=== PATIENT | female | born 2000 | race African-American/Black ===

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

== ENCOUNTER 2025-02-20 14:13 | Emergency (ER) | payer SELFPAY ==
[~2025-02-20] VITALS: Ht 170.2 cm; Wt 52.0 kg
[2025-02-20 15:32] LABS: Urine Bacteria FEW /hpf (None Seen); Urine Blood 2+ /uL (Negative); Urine Clarity Clear (Clear); Urine Color Yellow (Yellow); Urine Mucus FEW (None Seen); Urine Protein, UAD 1+ (Negative); Urine Specific Gravity 1.031 (1.001-1.035); Urine Squamous Epithelial Cell FEW /hpf (<5); Urine Urobilinogen 3 mg/dL (Negative); Urine WBC 23 /HPF (0-5)
--- NOTE | 2025-02-20 15:43 | ED.PDOC ---
History of Present Illness HPI Comments A 24 YEAR OLD FEMALE PRESENTS TO THE ED WITH COMPLAINT OF BODY ACHES AND RIGHT FLANK PAIN. PATIENT STATES SHE HAS BEEN EXPERIENCING BODY ACHES, FEVER, RIGHT FLANK PAIN, NAUSEA, CHILLS, AND SWEATS FOR THE PAST 1 WEEK. PATIENT REPORTS SHE HAS ALSO BEEN EXPERIENCING CONSTIPATION AND NAUSEA FOR THE PAST 3 DAYS. PATIENT DENIES DYSURIA, HEMATURIA, SHORTNESS OF BREATH, CHEST PAIN, ABDOMINAL PAIN, VOMITING, HEADACHE, OR OTHER COMPLAINTS. NO OTHER SYMPTOMS OR MODIFYING FACTORS AT THIS TIME. PATIENT IS ALERT, ORIENTED X 4, AND HAS STEADY GAIT. Chief Complaint: FLANK PAIN Time Seen by MD: 14:40 Reviewed Notes: Nurses Notes, Medications, Allergies Allergies: Coded Allergies: NO KNOWN ALLERGIES (Unverified , 02/20/25) Home Meds Active Scripts Ciprofloxacin Hcl (Cipro) 500 Mg Tab, 1 TAB PO BID, #20 TAB Prov:BONNIE APARICIO 02/20/25 Information Source: Patient Mode of Arrival: Ambulatory Severity: Moderate Timing: Days Duration: Intermittent, Days Prehospital treatment: None Medication Refill: For: Other (BODY ACHES AND RIGHT FLANK PAIN ) Past Medical History PAST MEDICAL HISTORY: Anemia Surgical History: Denies all surgeries SERVER CASHIER 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: No Pertinent 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 History Family History Family History: Reviewed,noncontributory to illness Social History Smoker: Non-Smoker Alcohol: Denies ETOH Use Drugs: Denies Drug Use Lives In: Home Constitutional: reports: chills, fatigue, fever, sweats; denies: diaphoresis, malaise, weakness, others EENTM: denies: blurred vision, double vision, ear bleeding, ear discharge, ear drainage, ear pain, ear ringing, eye pain, eye redness, hearing loss, mouth pain, mouth swelling, nasal discharge, nose bleeding, nose congestion, nose pain, photophobia, tearing, throat pain, throat swelling, voice changes, others Respiratory: denies: cough, hemoptysis, orthopnea, SOB at rest, shortness of breath, SOB with excertion, stridor, wheezing, others Cardiovascular: denies: chest pain, dizzy spells, diaphoresis, Dyspnea on exertion, edema, irregular heart beat, left arm pain, lightheadedness, palpitations, PND, syncope, others Gastrointestinal: reports: constipated, nausea; denies: abdomen distended, abdominal pain, blood streaked bowels, diarrhea, dysphagia, difficulty swallowing, hematemesis, melena, poor appetite, poor fluid intake, rectal bl eeding, rectal pain, vomiting, others Genitourinary: reports: flank pain; denies: abnormal vagina bleeding, burning, dyspareunia, dysuria, frequency, hematuria, incontinence, pain, , vagina discharge, urgency, others Neurological: denies: dizziness, fainting, headache, left sided numbness, left sided weakness, numbness, paresthesia, pre-existing deficit, right sided numbness, right sided weakness, seizure, speech problems, tingling, tremors, weakness, others Musculoskeletal: reports: muscle pain; denies: back pain, gout, joint pain, joint swelling, muscle stiffness, neck pain, others Integumetry: denies: bruises, change in color, change in hair/nails, dryness, laceration, lesions, lumps, rash, wounds, others Allergic/Immunocompromised: denies: Difficulty Healing, Frequent Infections, Hives, Itching, others Hematologic/Lymphatic: denies: anemia, blood clots, easy bleeding, easy bruising, swollen glands, others Endocrine: denies: excessive hunger, excessive sweating, excessive thirst, excessive urination, flushing, intolerance to cold, intolerance to heat, unexp lained weight gain, unexplained weight loss, others Psychiatric: denies: anxiety, bipolar disorder, depression, hopeless, panic disorder, schizophrenia, sleepless, suicidal, others All Other Systems: Reviewed and Negative Physical Exam General Appearance: No Apparent Distress, Thin HEENT: Normal ENT Inspection, PERRL/EOMI, Pharynx Normal, TMs Normal Neck: Full Range of Motion, Non-Tender, Normal, Normal Inspection Respiratory: Chest Non-Tender, Lungs Clear, No Accessory Muscle Use, No Respir atory Distress, Normal Breath Sounds Cardiovascular: No Edema, No JVD, No Murmur, No Gallop, Normal Peripheral Pulses, Regular Rate/Rhythm Breast Exam: Deferred Gastrointestinal: No Organomegaly, No Pulsatile Mass, Normal Bowel Sounds, Soft, Tenderness (TENDERNESS ON RIGHT FLANK, NO GUARDING AND REBOUND TENDERNESS, MILD CVA TENDERNESS ON RIGHT FLANK. ) Genitalia: Deferred Pelvic: Normal External Exam Rectal: Deferred Extremities: No calf tenderness, Normal capillary refill, Normal inspection, Normal range of motion, Non-tender, No pedal edema Musculoskeletal : Apperance: Normal Neurologic: Alert, traffic safety administrator II-XII nml as Tested, No Motor Deficits, Normal Affect, Normal Mood, No Sensory Deficits Cerebellar Function: Normal Reflexes: Normal Skin: Dry, Normal Color, Warm Peripheral Pulses: 2+ carotid (R), 2+ carotid (L) Lymphatic: No Adenopathy Was a procedure done? Was a procedure done?: No Differential Dx Considerations may include: UTI, ACUTE CYSTITIS, VIRAL SYNDROME, BODY ACHES, DEHYDRATION, ELECTROLYTE IMBALANCE, CONSTIPATION, KIDNEY STONE, APPENDICITIS, BOWEL OBSTRUCTION X-Ray, Labs, Meds, VS Vital Signs Date Time Temp Pulse Resp B/P (MAP) Pulse Ox O2 Delivery O2 Flow Rate FiO2 02/20/25 17:39 101.1 02/20/25 17:29 101.1 99 18 121/77 (92) 97 101.1 02/20/25 14:59 99.4 64 20 107/85 (92) 98 99.4 02/20/25 14:59 64 20 98 Room Air 02/20/25 14:24 99.4 64 20 107/85 (92) 98 99.4 Lab Test 02/20/25 15:44 02/20/25 14:30 Range/Units White Blood Count 14.5 H 4.4-10.8 10^3/uL Red Blood Count 4.86 4.0-5.20 10^6/uL Hemoglobin 14.2 12.2-16.2 g/dL Hematocrit 40.4 36.0-46.0 % Mean Corpuscular Volume 83.2 80.0-100.0 fL Mean Corpuscular Hemoglobin 29.1 28.0-32.0 pg Mean Corpuscular Hemoglobin Concent 35.0 32.0-36.0 g/dL Red Cell Distribution Width 14.4 H 11.8-14.3 % Platelet Count 555 H 140-450 10^3/uL Mean Platelet Volume 7.2 6.9-10.8 fL Neutrophils (%) (Auto) 79.8 37.0-80.0 % Lymphocytes (%) (Auto) 9.2 L 10.0-50.0 % Monocytes (%) (Auto) 10.6 0.0-12.0 % Eosinophils (%) (Auto) 0.1 0.0-7.0 % Basophils (%) (Auto) 0.3 0.0-2.0 % Neutrophils # (Auto) 11.6 H 1.6-8.6 10 ^3/uL Lymphocytes # (Auto) 1.3 0.4-5.4 10 ^3/uL Monocytes # (Auto) 1.5 H 0-1.3 10 ^3/uL Eosinophils # (Auto) 0 0-0.8 10 ^3/uL Basophils # (Auto) 0 0-0.2 10 ^3/uL Nucleated Red Blood Cells 0.1 % Sodium Level 134 L 136-145 mmol/L Potassium Level 3.8 3.5-5.1 mmol/L Chloride Level 99 98-107 mmol/L Carbon Dioxide Level 20 20-31 mmol/L Anion Gap 15 5-15 Blood Urea Nitrogen 8 L 9-23 mg/dL Creatinine 0.80 0.550-1.02 mg/dL Glomerular Filtration Rate Calc 106 >90 mL/min BUN/Creatinine Ratio 10.0 10.0-20.0 Serum Glucose 103 74-106 mg/dL Calcium Level 10.2 8.7-10.4 mg/dL Urine Color Yellow Yellow Urine Clarity Clear Clear Urine pH 6.0 5.0-9.0 Urine Specific [place] 1.031 1.001-1.035 Urine Protein 1+ H Negative Urine Ketones 4+ H Negative Urine Blood 2+ H Negative /uL Urine Nitrite Negative Negative Urine Bilirubin 1+ H Negative Urine Urobilinogen 3 H Negative mg/dL Urine Leukocyte Esterase 1+ Negative /uL Urine RBC 16 0 - 4 /hpf Urine Microscopic WBC 23 H 0-5 /HPF Urine Squamous Epithelial Cells Few <5 /hpf Urine Bacteria Few H None Seen /hpf Urine Mucus Few None Seen Urine Glucose Normal Normal mg/dL Urine Test Negative Negative Urine Opiates Screen Neg NEGATIVE Urine Fentanyl Screen Neg NEGATIVE Urine Barbiturates Screen Neg NEGATIVE Urine Phencyclidine Screen Neg NEGATIVE Urine Amphetamines Screen Neg NEGATIVE Urine Benzodiazepines Screen Neg NEGATIVE Urine Cocaine Screen Neg NEGATIVE Urine Cannabinoids Screen Pos NEGATIVE Current Medications Medications (Trade) Dose Ordered Sig/Gale Route Start Time Stop Time Status Last Admin Sodium Chloride 1,000 ml @ 1,000 mls/hr Q1H ONCE IV 02/20/25 16:00 02/20/25 16:59 DC 02/20/25 16:27 Acetaminophen (Tylenol Tablet) 1,000 mg ONCE ONCE PO 02/20/25 17:30 02/20/25 17:31 DC 02/20/25 17:39 Exam: XY KUB ABDOMEN SINGLE VIEW Indication: CONSTIPATOION Comparison: None Technique: 1 radiographic views of the abdomen. Findings: Nonobstructive bowel gas pattern noted. There is no definite evidence for pneumoperitoneum. No abnormal calcifications noted. Impression: Nonobstructive bowel gas pattern noted. ATED BY: JOSEF NAM MD DICTATED DATE/TIME: 02/20/25 154 SIGNED BY: JOSEF NAM MD SIGNED DATE/TIME: 02/20/251544 CC: Procedure: CT CT AB PEL WO CON-NO ORAL OR IV 02/20/2025 04:23 PM Indication: RIGHT FLANK PAIN Comparison Study: None Technique: Axial images were obtained and reformatted in coronal and sagittal planes. All CT scans at this medical facility are performed using dose modulation techniques as appropriate to a performed exam including the following: Automated exposure control was utilized; adjustment of the MA and/or KV according to patient size; and use of iterative reconstruction technique. CT Dose: CTDI volume is 5.2 mGy. Dose-length product is 229 mGy*cm FINDINGS: Lower Chest: Unremarkable. Hepatobiliary: Mild hepatomegaly. Spleen: Unremarkable. Pancreas: Unremarkable. Adrenal Glands: Unremarkable. tract: The kidneys are normal in size bilaterally without hydronephrosis or nephrolithiasis. Mild diffuse bladder wall thickening could be at least in part due to lack of distention. GI tract: The stomach is grossly normal in appearance. No evidence of small bowel obstruction. The large bowel is unremarkable. The appendix is not visualized. No inflammatory change is noted in the right lower quadrant. Lymphatics: No mesenteric, retroperitoneal or periportal lymphadenopathy. Vasculature: The abdominal aorta is normal in caliber. Pelvic Organs: Retroverted uterus, small amount of free fluid is seen in cul-de-sac. No adnexal lesions identified. Bones/soft tissues: No acute abnormality. Other: None. IMPRESSION: 1. No hydronephrosis or ureterolithiasis.The appendix 2. Is not identified. No inflammatory changes are seen in the right lower quadrant. 3. Small amount of free fluid in cul-de-sac, possibly physiologic. Recommend further evaluation with pelvic sonogram. ATED BY: FLACA RICO MD DICTATED DATE/TIME: 02/20/251741 SIGNED BY: FLACA RICO MD SIGNED DATE/TIME: 02/20/251741 CC: X-Ray, Labs, Meds, VS Comment EXTERNAL MEDICAL RECORDS REVIEWED: [NONE] INDEPENDENT HISTORIANS: [NONE] SOCIAL DETERMINANTS OF HEALTH: [NONE] LABS ORDERED: CBC, BMP, UA, URINE REVIEWED AND INTERPRETED RESULTS: KET 4+, BLOOD 2+, LEUKO 1+, PROTEIN 2+, WBC 14.5 IMAGING ORDERED: XR ABDOMEN (KUB), CT ABD/PEL TREATMENTS ORDERED: NS 1L IV, ROCEPHIN 1G IV, ZOFRAN 4 MG IV, TORADOL 30 MG IV PROCEDURES PERFORMED: NONE CRITICAL CARE TIME: NONE I HAVE DISCUSSED THE PATIENT WITH THE ATTENDING PHYSICIAN DR. LAKHANI AND CECILIA DAWSON WITH THE PATIENT'S PLAN OF CARE. UPON MY PHYSICAL EXAMINATION, THE PATIENT WAS ILL IN APPEARANCE, HAD RIGHT CVA TENDERNESS, BUT WAS IN NO ACUTE RESPIRATORY DISTRESS AT THIS TIME AND HAD NO GUARDING OR REBOUND TENDERNESS NOTED UPON PALPATION TO HER ABDOMEN. AN X-RAY OF THE PATIENT'S ABDOMEN WAS ORDERED WHICH WAS NORMAL. A CT SCAN OF THE PATIENT'S ABDOMEN AND PELVIS WAS DONE WHICH WAS NORMAL LABS WERE DONE FOR THE PATIENT WHICH REVEALED KETONES 4+ IN HER URINE, BLOOD 3+ IN HER URINE, LEUKOCYTES 1+ IN HER URINE, AND AN ELEVATED WHITE BLOOD COUNT OF 14.5 SUGGESTING ACUTE DEHYDRATION. PATIENT HAS ALSO CONSISTENTLY HAD A FEVER WHILE HERE IN THE ED. DUE TO THE PATIENT HAVING A FEVER WITHOUT ANY KNOWN SOURCE DESPITE MULTIPLE TESTS, AND THE PATIENT BEING DEHYDRATED, I HAVE DETERMINED THE PATIENT NEEDS TO BE ADMITTED FOR FURTHER TREATMENT AND EVALUATION. THE ON-CALL HOSPITALIST WILL BE CONTACTED FOR ADMISSION IN HIS PATIENT. PATIENT WAS INFORMED THAT SHE NEEDS TO BE ADMITTED FOR FURTHER TREATMENT AND EVALUATION. PATIENT STATED SHE DID NOT WANT TO STAY AND BE ADMITTED AND WOULD LIKE TO SIGN OUT AMA. PATIENT WAS INFORMED OF THE RISKS AND CONSEQUENCES OF SIGNING OUT AMA AND PATIENT STILL INSISTED ON LEAVING. PATIENT SIGNED OUT AMA. Images Reviewed?: Images reviewed and evaluated by me Time of 1ST Reevaluation: 18:20 Reevaluation 1ST: Improved Patient Education/Counseling: Diagnosis, Treatment, Need For Follow Up Family Education/Counseling: Diagnosis, Treatment, Need For Follow Up Medical Screening: No EMC Exist At This Time Departure 1 Departure Time of Disposition: 18:20 Impression: Primary Impression: Acute pyelonephritis Additional Impression: Dehydration Disposition: LEFT AGAINST MEDICAL ADVICE Condition: Fair e-Prescriptions Ciprofloxacin Hcl (Cipro) 500 Mg Tab 1 TAB PO BID, #20 TAB Prov: BONNIE APARICIO 02/20/25 Critical Care Note Critical Care Time?: No Stability Stability form required: No I personally scribed for BONNIE APARICIO ([email or web address]) on 02/20/25 at 15:43. Electronically submitted by Sedrick Garcia ([employer]). I personally scribed for BONNIE APARICIO ([email or web address]) on 02/20/25 at 16:36. Electronically submitted by Sedrick Garcia ([employer]). I personally scribed for BONNIE APARICIO ([email or web address]) on 02/20/25 at 17:11. Electronically submitted by Sedrick Garcia ([employer]). I personally scribed for BONNIE APARICIO ([email or web address]) on 02/20/25 at 17:55. Electronically submitted by Sedrick Garcia ([employer]). I personally scribed for BONNIE APARICIO ([email or web address]) on 02/20/25 at 18:01. Electronically submitted by Sedrick Garcia ([employer]). BONNIE APARICIO Feb 20, 2025 15:43
--- NOTE | 2025-02-20 15:46 | DVH ---
Exam: XY KUB ABDOMEN SINGLE VIEW Indication: CONSTIPATOION Comparison: None Technique: 1 radiographic views of the abdomen. Findings: Nonobstructive bowel gas pattern noted. There is no definite evidence for pneumoperitoneum. No abnormal calcifications noted. Impression: Nonobstructive bowel gas pattern noted.
[2025-02-20 16:18] LABS: Basophils # (auto) 0 10 ^3/uL (0-0.2); Basophils % (auto) 0.3 % (0.0-2.0); Eosinophils # (auto) 0 10 ^3/uL (0-0.8); Eosinophils % (auto) 0.1 % (0.0-7.0); Lymphocytes % (auto) 9.2 % (10.0-50.0); Monocytes # (auto) 1.5 10 ^3/uL (0-1.3)
[2025-02-20 16:20] LABS: Hematocrit 40.4 % (36.0-46.0); Hemoglobin 14.2 g/dL (12.2-16.2); Lymphocytes # (auto) 1.3 10 ^3/uL (0.4-5.4); Mean Corpuscular Hemoglobin 29.1 pg (28.0-32.0); Mean Corpuscular Volume 83.2 fL (80.0-100.0); Monocytes % (auto) 10.6 % (0.0-12.0); Neutrophils # (auto) 11.6 10 ^3/uL (1.6-8.6); Neutrophils % (auto) 79.8 % (37.0-80.0); Nucleated Red Blood Cells % 0.1 %; Platelet Count (auto) 555 10^3/uL (140-450); Red Blood Cells 4.86 10^6/uL (4.0-5.20); Red Cell Distribution Width 14.4 % (11.8-14.3); White Blood Cell 14.5 10^3/uL (4.4-10.8)
[2025-02-20 16:24] LABS: Chloride 99 mmol/L (98-107); Potassium 3.8 mmol/L (3.5-5.1)
[2025-02-20 16:25] LABS: Anion Gap 15 (5-15); Calcium 10.2 mg/dL (8.7-10.4); Carbon Dioxide 20 mmol/L (20-31)
[2025-02-20 16:26] LABS: Sodium 134 mmol/L (136-145)
[2025-02-20] MEDS: SODIUM CHLORIDE 0.9% 1,000 ML IV ONE (16:27)
[2025-02-20 16:30] LABS: Blood Urea Nitrogen 8 mg/dL (9-23); Glucose 103 mg/dL (74-106)
[2025-02-20] MEDS: ONDANSETRON HCL 4 MG/2 ML VIAL IV ONE (17:18)
[2025-02-20] MEDS: KETOROLAC TROMETH 30 MG/ML 1ML VIAL IV ONE (17:18)
[2025-02-20 17:29] VITALS: BP 121/77; PULSE 99; RESP 18; O2SAT 97
[2025-02-20 17:37] LABS: Benzodiazephine Screen, Urine Neg (NEGATIVE); Cannabinoid Screen, Urine Pos (NEGATIVE); Phencyclidine Screen, Urine Neg (NEGATIVE)
[2025-02-20 17:39] VITALS: TEMP 101.1
[2025-02-20 17:39] LABS: Amphetamine Screen, Urine Neg (NEGATIVE); Barbiturate Scree,Urine Neg (NEGATIVE); Cocaine Screen, Urine Neg (NEGATIVE); Opiate Scree,Urine Neg (NEGATIVE)
[2025-02-20] MEDS: ACETAMINOPHEN 325 MG TAB PO ONE (17:39)
--- NOTE | 2025-02-20 17:45 | DVH ---
Procedure: CT CT AB PEL WO CON-NO ORAL OR IV 02/20/2025 04:23 PM Indication: RIGHT FLANK PAIN Comparison Study: None Technique: Axial images were obtained and reformatted in coronal and sagittal planes. All CT scans at this medical facility are performed using dose modulation techniques as appropriate to a performed e xam including the following: Automated exposure control was utilized; adjustment of the MA and/or KV according to patient size; and use of iterative reconstruction technique. CT Dose: CTDI volume is 5.2 mGy. Dose-length product is 229 mGy*cm FINDINGS: Lower Chest: Unremarkable. Hepatobiliary: Mild hepatomegaly. Spleen: Unremarkable. Pancreas: Unremarkable. Adrenal Glands: Unremarkable. tract: The kidneys are normal in size bilaterally without hydronephrosis or nephrolithiasis. Mild diffuse bladder wall thickening could be at least in part due to lack of distention. GI tract: The stomach is grossly normal in appearance. No evidence of small bowel obstruction. The la rge bowel is unremarkable. The appendix is not visualized. No inflammatory change is noted in the rig ht lower quadrant. Lymphatics: No mesenteric, retroperitoneal or periportal lymphadenopathy. Vasculature: The abdominal aorta is normal in caliber. Pelvic Organs: Retroverted uterus, small amount of free fluid is seen in cul-de-sac. No adnexal lesio ns identified. Bones/soft tissues: No acute abnormality. Other: None. IMPRESSION: 1. No hydronephrosis or ureterolithiasis.The appendix 2. Is not identified. No inflammatory changes are seen in the right lower quadrant. 3. Small amount of free fluid in cul-de-sac, possibly physiologic. Recommend further evaluation with pelvic sonogram.
[2025-02-20] MEDS ORDERED: cefTRIAXone 1GM/50ML D5W 50 ML IV ONE (18:00)
[2025-02-20] MEDS ORDERED: CIPR-173 PO (18:13)
== END 2025-02-20 18:12 | disposition left against medical advice (07) ==
LOC: ER 14:13
DX: N10 Acute pyelonephritis (principal); E86.0 Dehydration; R10.84 Generalized abdominal pain; D64.9 Anemia, unspecified; Z79.899 Other long term (current) drug therapy
CPT/HCPCS: 36415; 74018; 74176; 80048; 80307; 81001; 81025; 85025; 96360; 99284; J1885; J2405; J7030

== ENCOUNTER 2025-02-21 09:41 | Inpatient (IN) | payer MEDICAID, OTHER ==
[~2025-02-21] VITALS: Ht 170.2 cm; Wt 51.9 kg
[~2025-02-21 09:41] MED LIST: CIPR-173 PO
--- NOTE | 2025-02-21 10:00 | ED.PDOC ---
History of Present Illness HPI Comments 24 y/o F, with PMHx of anemia presents to the ED for CC of flank pain. Patient states, that she has been experiencing right flank pain that radiates to her RLQ x3days. Patient relays, that she was seen at [facility] yesterday (03/02/25) and was told to have a UTI; patient was departed home with unremarkable findings and antibiotics. Patient complains of current 6/10 pain with no improvement in symptoms. Patient denies hematuria, dysuria, frequency, back pain, or fever. No other associated symptoms, modifiers, recent injuries or sick contacts present at this time. Time Seen by MD: 09:54 Reviewed Notes: Nurses Notes, Medications, Allergies Allergies: Coded Allergies: NO KNOWN ALLERGIES (Unverified , 02/20/25) Home Meds Active Scripts Ciprofloxacin Hcl (Cipro) 500 Mg Tab, 1 TAB PO BID, #20 TAB Prov:BONNIE APARICIO 02/20/25 Information Source: Patient Mode of Arrival: Ambulatory Severity: Moderate Timing: Days Duration: Intermittent Prehospital treatment: Other (antibiotics) Past Medical History PAST MEDICAL HISTORY: Anemia Surgical History: Denies all surgeries SCOUT LEASER History: No Pertinent SCOUT LEASER History Family History Family History: Reviewed,noncontributory to illness Social History Smoker: Non-Smoker Alcohol: Denies ETOH Use Drugs: Marijuana Lives In: Home Constitutional: denies: chills, diaphoresis, fatigue, fever, malaise, sweats, weakness, others EENTM: denies: blurred vision, double vision, ear bleeding, ear discharge, ear drainage, ear pain, ear ringing, eye pain, eye redness, hearing loss, mouth pain, mouth swelling, nasal discharge, nose bleeding, nose congestion, nose pain, photophobia, tearing, throat pain, throat swelling, voice changes, others Respiratory: denies: cough, hemoptysis, orthopnea, SOB at rest, shortness of breath, SOB with excertion, stridor, wheezing, others Cardiovascular: denies: chest pain, dizzy spells, diaphoresis, Dyspnea on exertion, edema, irregular heart beat, left arm pain, lightheadedness, palpitations, PND, syncope, others Gastrointestinal: denies: abdomen distended, abdominal pain, blood streaked bowels, constipated, diarrhea, dysphagia, difficulty swallowing, hematemesis, melena, nausea, poor appetite, poor fluid intake, rectal bleeding, rectal pain, vomiting, others Genitourinary: reports: flank pain; denies: abnormal vagina bleeding, burning, dyspareunia, dysuria, frequency, hematuria, incontinence, pain, , vagina discharge, urgency, others Neurological: denies: dizziness, fainting, headache, left sided numbness, left sided weakness, numbness, paresthesia, pre-existing deficit, right sided numbness, right sided weakness, seizure, speech problems, tingling, tremors, weakness, others Musculoskeletal: denies: back pain, gout, joint pain, joint swelling, muscle pa in, muscle stiffness, neck pain, others Integumetry: denies: bruises, change in color, change in hair/nails, dryness, laceration, lesions, lumps, rash, wounds, others Allergic/Immunocompromised: denies: Difficulty Healing, Frequent Infections, Hives, Itching, others Hematologic/Lymphatic: denies: anemia, blood clots, easy bleeding, easy bruising, swollen glands, others Endocrine: denies: excessive hunger, excessive sweating, excessive thirst, excessive urination, flushing, intolerance to cold, intolerance to heat, unexplained weight gain, unexplained weight loss, others Psychiatric: denies: anxiety, bipolar disorder, depression, hopeless, panic disorder, schizophrenia, sleepless, suicidal, others All Other Systems: Reviewed and Negative Physical Exam General Appearance: Moderate Distress HEENT: Normal ENT Inspection, Pharynx Normal, TMs Normal Neck: Full Range of Motion, Non-Tender, Normal, Normal Inspection Respiratory: Chest Non-Tender, Lungs Clear, No Accessory Muscle Use, No Respiratory Distress, Normal Breath Sounds Cardiovascular: No Edema, No JVD, No Murmur, No Gallop, Normal Peripheral Pulses, Tachycardia Breast Exam: Deferred Gastrointestinal: No Organomegaly, Non Tender, No Pulsatile Mass, Normal Bowel Sounds, Soft Genitalia: Deferred Pelvic: Deferred Rectal: Deferred Extremities: No calf tenderness, Normal capillary refill, Normal inspection, Normal range of motion, Non-tender, No pedal edema Musculoskeletal : Apperance: Normal Neurologic: Alert, electronics scale tester II-XII nml as Tested, No Motor Deficits, Normal Affect, Normal Mood, No Sensory Deficits Cerebellar Function: Normal Reflexes: Normal Skin: Dry, Normal Color, Warm Peripheral Pulses: 3+ Radial (R), 3+ Radial (L) Lymphatic: No Adenopathy Was a procedure done? Was a procedure done?: No Differential Dx Considerations may include: UTI X-Ray, Labs, Meds, VS Vital Signs Date Time Temp Pulse Resp B/P (MAP) Pulse Ox O2 Delivery O2 Flow Rate FiO2 02/21/25 10:31 125 16 98 Room Air* 0 21 02/21/25 10:18 125 16 98 Room Air 02/21/25 10:18 98.0 125 16 123/87 (99) 98 98.0 02/21/25 09:55 99.1 139 18 125/93 (104) 100 99.1 Lab Test 02/21/25 10:20 02/21/25 09:55 Range/Units White Blood Count 11.9 H 4.4-10.8 10^3/uL Red Blood Count 4.53 4.0-5.20 10^6/uL Hemoglobin 13.4 12.2-16.2 g/dL Hematocrit 37.8 36.0-46.0 % Mean Corpuscular Volume 83.5 80.0-100.0 fL Mean Corpuscular Hemoglobin 29.6 28.0-32.0 pg Mean Corpuscular Hemoglobin Concent 35.4 32.0-36.0 g/dL Red Cell Distribution Width 13.8 11.8-14.3 % Platelet Count 505 H 140-450 10^3/uL Mean Platelet Volume 6.7 L 6.9-10.8 fL Neutrophils (%) (Auto) 73.4 37.0-80.0 % Lymphocytes (%) (Auto) 13.3 10.0-50.0 % Monocytes (%) (Auto) 12.3 H 0.0-12.0 % Eosinophils (%) (Auto) 0.7 0.0-7.0 % Basophils (%) (Auto) 0.3 0.0-2.0 % Neutrophils # (Auto) 8.7 H 1.6-8.6 10 ^3/uL Lymphocytes # (Auto) 1.6 0.4-5.4 10 ^3/uL Monocytes # (Auto) 1.5 H 0-1.3 10 ^3/uL Eosinophils # (Auto) 0.1 0-0.8 10 ^3/uL Basophils # (Auto) 0 0-0.2 10 ^3/uL Nucleated Red Blood Cells 0.0 % Urine Color Yellow Yellow Urine Clarity Cloudy H Clear Urine pH 6.0 5.0-9.0 Urine Specific [place] 1.022 1.001-1.035 Urine Protein 1+ H Negative Urine Ketones 1+ H Negative Urine Blood 2+ H Negative /uL Urine Nitrite Negative Negative Urine Bilirubin Negative Negative Urine Urobilinogen Normal Negative mg/dL Urine Leukocyte Esterase 3+ Negative /uL Urine RBC 8 0 - 4 /hpf Urine Microscopic WBC 68 H 0-5 /HPF Urine Squamous Epithelial Cells Few <5 /hpf Urine Bacteria Few H None Seen /hpf Urine Mucus Few None Seen Urine Yeast (Budding) Occasional None Seen /hpf Urine Glucose Normal Normal mg/dL Current Medications Medications (Trade) Dose Ordered Sig/Gale Route Start Time Stop Time Status Last Admin Sodium Chloride 1,000 ml @ 1,000 mls/hr Q1H ONCE IVB 02/21/25 10:15 02/21/25 11:14 DC 02/21/25 10:26 Ceftriaxone Sodium 50 ml @ 100 mls/hr ONCE ONCE IV 02/21/25 10:15 02/21/25 10:44 DC 02/21/25 10:27 [place] [id number] Ph: [phone] DIAGNOSTIC IMAGING Diagnostic Imaging Report : [id number] Signed PATIENT: YANIV WORKMAN RACCT: [id number] UNIT: [id number] : 2000 LOC: ER ROOM / BED: / AGE / SEX: 24 / F ADM STATUS: REG ER SERVICE [id number] ORDERING PHYSICIAN: ANUP LAKHANI MD PROCEDURE(s): PELUS - PELVIC REASON: SMALL CUL DE SAC FLUID ON CT 02/20 ORDER NUMBER(s): [id number], ACCESSION NUMBER(s): [id number] EXAM: US Pelvis Transabdominal, Complete CLINICAL INDICATION: SMALL CUL DE SAC FLUID ON CT 02/20 TECHNIQUE: Real-time complete transabdominal pelvic ultrasound with image documentation. COMPARISON: None FINDINGS: UTERUS/CERVIX: Uterus 8.8, 4.9, 4 pole 4. No myometrial mass. The endometrial stripe measures 0.1 cm in thickness. RIGHT OVARY: Unremarkable. Normal blood flow. The right ovary measures 2.4 x 2.2 x 2.7 cm. LEFT OVARY: Unremarkable. Normal blood flow. The left ovary measures 3.2 x 2.0 x 3.1 cm. FREE FLUID: No free fluid. BLADDER: Unremarkable as visualized. Wall is normal thickness for degree of distention. OTHER FINDINGS: . . IMPRESSION: No acute findings in the pelvis. ATED BY: TASHA MERRILL MD DICTATED DATE/TIME: 02/21/25 1135 SIGNED BY: TASHA MERRILL MD SIGNED DATE/TIME: 02/21/25 1135 CC: Patient alert. Complaining of flank pain. Was seen in this ER for the same symptom yesterday. Ambulating. Tachycardia. She does not take care of herself. She left against medical advice yesterday. Reviewed her chart. Urinalysis shows ketones. She was given fluids yesterday. She was given prescription of antibiotic. Establish intravenous access. Was given fluids. Was given Rocephin. No leg swelling. No shortness a breath. Reviewed her previous visit. Explained to the patient. Continue monitoring. Time of 1ST Reevaluation: 10:24 Reevaluation 1ST: Unchanged Patient Education/Counseling: Diagnosis, Treatment Family Education/Counseling: No Family Present Departure 1 Departure Time of Disposition: 10:20 Impression: Primary Impression: Acute pyelonephritis Additional Impression: Dehydration Disposition: ADMITTED INPATIENT Admit to: Med Surg Condition: Guarded Critical Care Note Critical Care Time?: Yes (90 min-critical care time only) Critical care comment: Tachycardia Stability Stability form required: No Heart Score Heart Score: Heart Score Response (Comments) Value History N/A 0 EKG N/A 0 Age N/A 0 Risk Factors N/A 0 Troponin N/A 0 Total 0 I personally scribed for ANUP LAKHANI MD ([email or web address]) on 02/21/25 at 10:00. Electronically submitted by Alda Tamayo ([email or web address]). I personally scribed for ANUP LAKHANI MD ([email or web address]) on 02/21/25 at 11:45. Electronically submitted by Alda Tamayo ([email or web address]). ANUP LAKHANI MD Feb 21, 2025 10:00
[2025-02-21] MEDS: SODIUM CHLORIDE 0.9% 1,000 ML IVB ONE (10:26)
[2025-02-21] MEDS: cefTRIAXone 1GM/50ML D5W 50 ML IV ONE (10:27)
[2025-02-21 10:29] LABS: Basophils # (auto) 0 10 ^3/uL (0-0.2); Basophils % (auto) 0.3 % (0.0-2.0); Eosinophils # (auto) 0.1 10 ^3/uL (0-0.8); Eosinophils % (auto) 0.7 % (0.0-7.0); Hemoglobin 13.4 g/dL (12.2-16.2); Lymphocytes # (auto) 1.6 10 ^3/uL (0.4-5.4); Monocytes # (auto) 1.5 10 ^3/uL (0-1.3)
[2025-02-21 10:31] VITALS: PULSE 125; RESP 16; O2SAT 98
[2025-02-21 10:33] LABS: Hematocrit 37.8 % (36.0-46.0); Lymphocytes % (auto) 13.3 % (10.0-50.0); Mean Corpuscular Hemoglobin 29.6 pg (28.0-32.0); Mean Corpuscular Hgb Conc. 35.4 g/dL (32.0-36.0); Mean Corpuscular Volume 83.5 fL (80.0-100.0); Monocytes % (auto) 12.3 % (0.0-12.0); Neutrophils # (auto) 8.7 10 ^3/uL (1.6-8.6); Neutrophils % (auto) 73.4 % (37.0-80.0); Platelet Count (auto) 505 10^3/uL (140-450); Red Blood Cells 4.53 10^6/uL (4.0-5.20); Red Cell Distribution Width 13.8 % (11.8-14.3); White Blood Cell 11.9 10^3/uL (4.4-10.8)
[2025-02-21 10:35] LABS: Urine Bacteria FEW /hpf (None Seen); Urine Blood 2+ /uL (Negative); Urine Budding Yeast OCCASIONAL /hpf (None Seen); Urine Color Yellow (Yellow); Urine Mucus FEW (None Seen); Urine Protein, UAD 1+ (Negative); Urine Specific Gravity 1.022 (1.001-1.035); Urine Squamous Epithelial Cell FEW /hpf (<5); Urine Urobilinogen Normal (Negative); Urine WBC 68 /HPF (0-5)
[2025-02-21 10:41] LABS: Urine Clarity Cloudy (Clear)
--- NOTE | 2025-02-21 11:37 | DVH ---
EXAM: US Pelvis Transabdominal, Complete CLINICAL INDICATION: SMALL CUL DE SAC FLUID ON CT 02/20 TECHNIQUE: Real-time complete transabdominal pelvic ultrasound with image documentation. COMPARISON: None FINDINGS: UTERUS/CERVIX: Uterus 8.8, 4.9, 4 pole 4. No myometrial mass. The endometrial stripe measures 0.1 cm in thickness. RIGHT OVARY: Unremarkable. Normal blood flow. The right ovary measures 2.4 x 2.2 x 2.7 cm. LEFT OVARY: Unremarkable. Normal blood flow. The left ovary measures 3.2 x 2.0 x 3.1 cm. FREE FLUID: No free fluid. BLADDER: Unremarkable as visualized. Wall is normal thickness for degree of distention. OTHER FINDINGS: . . IMPRESSION: No acute findings in the pelvis.
[2025-02-21] MEDS ORDERED: ACETAMINOPHEN 325 MG TAB PO PRN (16:00)
[2025-02-21] MEDS ORDERED: KETOROLAC TROMETH 30 MG/ML 1ML VIAL IV PRN (16:00)
[2025-02-21] MEDS: KETOROLAC TROMETH 30 MG/ML 1ML VIAL IV ONE (17:42)
--- NOTE | 2025-02-21 17:48 | DVHHP2 ---
History of Present Illness Reason for Visit: Right flank pain due to UTI History of Present Illness This is a 24-year-old female with no medical history presents to ED with chief complaint of right flank pain x3 days with no associated symptoms. Patient relates that she was seen at this facility yesterday and was told that she has a urinary tract infection in which the patient departed home with unremarkable findings and antibiotics. Upon evaluation of patient she reports pain 6/10 on pain scale 1-10 with no improvement in her symptoms. She is concerned about her symptoms and would like to be further evaluated and treated. The patient will be admitted under hospitalist care to the medical-surgical unit. The patient denies fever, chills, headache, dizziness, palpitation, chest pain, shortness of breath, nausea, vomiting, abdominal pain, diarrhea, constipation and other associated symptoms. The plan has been discussed with the patient and primary RN in which all questions concerns have been addressed. Past Surgical History: None Family History: None Smoke: No ALCOHOL: none Drugs: Marijuana Lives: with Family Domestic Violence: Neg Review of Systems Genitourinary: Other (Right flank pain) Allergies: Coded Allergies: NO KNOWN ALLERGIES (Unverified , 02/20/25) Medications Current Medications Medications Dose Ordered Sig/Gale Route Start Time Stop Time Status Last Admin Dose Admin Ceftriaxone Sodium 50 ml @ 100 mls/hr DAILY@09 IV 02/22/25 09:00 Sodium Chloride 1,000 ml @ 100 mls/hr Q10H IV 02/21/25 16:00 Acetaminophen 650 mg Q6HP PRN PO 02/21/25 16:00 Ketorolac Tromethamine 15 mg Q6HPRN PRN IV 02/21/25 16:00 02/26/25 15:59 Exam Vital Signs Vital Signs Date Time Temp Pulse Resp B/P (MAP) Pulse Ox O2 Delivery O2 Flow Rate FiO2 02/21/25 17:41 99.0 94 20 128/81 (97) 96 99.0 02/21/25 10:31 Room Air* 0 21 General Appearance: Alert, Oriented X3, Cooperative, mild distress HEENT: Atraumatic, PERRLA, Mucous membr. moist/pink Respiratory: Clear to auscultation, Normal air movement Cardiovascular: Regular rate, Normal S1, Normal S2, No murmurs Abdominal: Normal bowel sounds, Soft, No hepatospenomegaly, No masses Extremities: No clubbing, No cyanosis, No edema, Normal pulses, No t enderness/swelling Skin: No rashes, No breakdown Neuro: Normal gait, Normal speech, Strength at 5/5 X4 ext, Normal tone, Sensation intact, Cranial nerves 3-12 NL, Reflexes 2+ Psych/Mental Status: Mental status NL, Mood NL Labs/Xrays Labs Test 02/21/25 10:20 02/21/25 09:55 Range/Units White Blood Count 11.9 H 4.4-10.8 10^3/uL Red Blood Count 4.53 4.0-5.20 10^6/uL Hemoglobin 13.4 12.2-16.2 g/dL Hematocrit 37.8 36.0-46.0 % Mean Corpuscular Volume 83.5 80.0-100.0 fL Mean Corpuscular Hemoglobin 29.6 28.0-32.0 pg Mean Corpuscular Hemoglobin Concent 35.4 32.0-36.0 g/dL Red Cell Distribution Width 13.8 11.8-14.3 % Platelet Count 505 H 140-450 10^3/uL Mean Platelet Volume 6.7 L 6.9-10.8 fL Neutrophils (%) (Auto) 73.4 37.0-80.0 % Lymphocytes (%) (Auto) 13.3 10.0-50.0 % Monocytes (%) (Auto) 12.3 H 0.0-12.0 % Eosinophils (%) (Auto) 0.7 0.0-7.0 % Basophils (%) (Auto) 0.3 0.0-2.0 % Neutrophils # (Auto) 8.7 H 1.6-8.6 10 ^3/uL Lymphocytes # (Auto) 1.6 0.4-5.4 10 ^3/uL Monocytes # (Auto) 1.5 H 0-1.3 10 ^3/uL Eosinophils # (Auto) 0.1 0-0.8 10 ^3/uL Basophils # (Auto) 0 0-0.2 10 ^3/uL Nucleated Red Blood Cells 0.0 % Urine Color Yellow Yellow Urine Clarity Cloudy H Clear Urine pH 6.0 5.0-9.0 Urine Specific [place] 1.022 1.001-1.035 Urine Protein 1+ H Negative Urine Ketones 1+ H Negative Urine Blood 2+ H Negative /uL Urine Nitrite Negative Negative Urine Bilirubin Negative Negative Urine Urobilinogen Normal Negative mg/dL Urine Leukocyte Esterase 3+ Negative /uL Urine RBC 8 0 - 4 /hpf Urine Microscopic WBC 68 H 0-5 /HPF Urine Squamous Epithelial Cells Few <5 /hpf Urine Bacteria Few H None Seen /hpf Urine Mucus Few None Seen Urine Yeast (Budding) Occasional None Seen /hpf Urine Glucose Normal Normal mg/dL ORDERING PHYSICIAN: ANUP LAKHANI MD PROCEDURE(s): PELUS - PELVIC REASON: SMALL CUL DE SAC FLUID ON CT 02/20 ORDER NUMBER(s): [id number], ACCESSION NUMBER(s): [id number] EXAM: US Pelvis Transabdominal, Complete CLINICAL INDICATION: SMALL CUL DE SAC FLUID ON CT 02/20 TECHNIQUE: Real-time complete transabdominal pelvic ultrasound with image documentation. COMPARISON: None FINDINGS: UTERUS/CERVIX: Uterus 8.8, 4.9, 4 pole 4. No myometrial mass. The endometrial stripe measures 0.1 cm in thickness. RIGHT OVARY: Unremarkable. Normal blood flow. The right ovary measures 2.4 x 2.2 x 2.7 cm. LEFT OVARY: Unremarkable. Normal blood flow. The left ovary measures 3.2 x 2.0 x 3.1 cm. FREE FLUID: No free fluid. BLADDER: Unremarkable as visualized. Wall is normal thickness for degree of distention. OTHER FINDINGS: . . IMPRESSION: No acute findings in the pelvis. ATED BY: TASHA TUTTLE MD DICTATED DATE/TIME: 02/21/25 1135 SIGNED BY: TASHA TUTTLE MD SIGNED DATE/TIME: 02/21/25 1135 CC: Assessment/Plan Assessment/Plan Right flank pain due to UTI--chief complaint of right flank pain with no associated symptoms x3 days Last seen at this facility for same symptoms and was departed home with unremarkable findings and antibiotics Patient reports symptoms have progressively gotten worse Admit to medical-surgical unit Reviewed CBC shows leukocytosis Reviewed BMP which is normal Urinalysis shows few high bacteria Reviewed pelvic ultrasound which is negative Lactic acid pending IV hydration IV ceftriaxone now and daily IV Toradol now and p.r.n. for pain Reconcile home meds DVT prophylaxis not indicated patient ambulatory PUD prophylaxis not indicated no history of GERD Labs in a.m. Discussed plan of care with the patient in which all questions concerns have been addressed Plan discussed with: Patient My Orders Orders - JIM RICHARDSON Procedure Category Date Status Time Ceftriaxone 1gm/50ml PHA 02/22/25 In Process D5w (Rocephin) 09:00 Admit ADMIT 02/21/25 Transmitted 15:46 2 Gm Sodium Diet DIET 02/21/25 Transmitted Dinner Sodium Chloride 0.9% PHA 02/21/25 In Process 16:00 Complete Blood Count LAB 02/22/25 Verified 04:00 Comprehensive LAB 02/22/25 Verified Metabolic Panel 04:00 Condition: Fair JEOVANNY 02/21/25 In Process 15:46 Acetaminophen Tablet PHA 02/21/25 In Process (Tylenol Tablet) 16:00 BRP JEOVANNY 02/21/25 In Process 15:46 Ketorolac Injection PHA 02/21/25 In Process (Toradol Injection) 16:00 Date of Service: Feb 21, 2025 Billing Provider: JIM RICHARDSON Common Visit Codes: [id number] INP/OBS CARE (HIGH) JIM RICHARDSON Feb 21, 2025 17:48
[2025-02-21] MEDS: SODIUM CHLORIDE 0.9% 1,000 ML IV SCH (19:15)
[2025-02-21 22:40] VITALS: BP 140/70; PULSE 104; RESP 16; TEMP 99; O2SAT 95
[2025-02-22] MEDS ORDERED: cefTRIAXone 1GM/50ML D5W 50 ML IV SCH (09:00)
== END 2025-02-22 00:48 | disposition left against medical advice (07) | DRG 463 ==
LOC: ER 09:41 → OVERFLOW 15:46
PROVIDERS: ADMIT Nurse Practitioner Family; ATTEND Nurse Practitioner Family
DX: N10 Acute pyelonephritis (principal); E86.0 Dehydration; Z53.29 Procedure and treatment not carried out because of patient's decision for other reasons
CPT/HCPCS: 36415; 76856; 81001; 83605; 85025; 99291; 99292; G0378; J1885

== ENCOUNTER 2025-10-07 01:57 | Emergency (ER) | payer MEDICAID ==
[~2025-10-07] VITALS: Ht 170.2 cm; Wt 59.4 kg
--- NOTE | 2025-10-07 02:14 | ECG ---
[facility] Test Date: 2025-10-07 Test Time: 02:13:04 Pat Name: YANIV WORKMAN Department: Room: Gender: F Plate Mounter: VIOLETA : 2000 Requested By: CHINO BERUMEN Order Number: [id number] MD: William Browne Measurements Intervals [place] Rate: 79 P: 52 WI: 118 QRS: 70 QRSD: 91 T: 62 QT: 383 QTc: 440 Interpretive Statements Sinus rhythm Borderline short WI interval Electronically Signed On 10-08-2025 17:04:11 PST by William Browne Please click the below link to view image of tracing.
[2025-10-07 02:21] VITALS: BP 125/88; RESP 16; TEMP 98.5; O2SAT 95
[2025-10-07 02:32] LABS: Hematocrit 37.6 % (36.0-46.0); Hemoglobin 12.8 g/dL (12.2-16.2); Mean Corpuscular Hemoglobin 29.7 pg (28.0-32.0); Mean Corpuscular Volume 87.0 fL (80.0-100.0); Nucleated Red Blood Cells % 0.0 %
[2025-10-07 02:42] LABS: Potassium 4.3 mmol/L (3.5-5.1); Sodium 142 mmol/L (136-145)
[2025-10-07 02:43] LABS: Anion Gap 9 (5-15); Carbon Dioxide 26 mmol/L (20-31)
[2025-10-07 02:44] LABS: Calcium 9.2 mg/dL (8.7-10.4)
[2025-10-07 02:48] LABS: BUN/Creatinine Ratio 14.9 (10.0-20.0); Blood Urea Nitrogen 14 mg/dL (9-23); Glucose 88 mg/dL (74-106)
--- NOTE | 2025-10-07 02:51 | ED.PDOC ---
HPI Comments 25-year-old female complaining of sharp chest wall pain that started at 7:00 p.m. today. States it is worse with movement, pain does calm down when she is not moving. Denies any shortness of breath. No prior cardiac history. States she has been using her arms, putting up [place] decorations today. States she also deals with chronic anxiety. No new foods no new medications. No significant/recent changes in his stress. Chief Complaint: Chest Pain Time Seen by MD: 02:18 Primary Care Provider: UNKNOWN Reviewed Notes: Nurses Notes Allergies: Coded Allergies: NO KNOWN ALLERGIES (Unverified , 02/20/25) Home Meds Active Scripts Ciprofloxacin Hcl (Cipro) 500 Mg Tab, 1 TAB PO BID, #20 TAB Prov:BONNIE APARICIO 02/20/25 Information Source: Patient Mode of Arrival: Ambulatory Past Medical History PAST MEDICAL HISTORY: Anemia Surgical History: Denies all surgeries SPECIAL AGENT History: No Pertinent SPECIAL AGENT History Family History Family History: Reviewed,noncontributory to illness Social History Smoker: Non-Smoker Alcohol: Denies ETOH Use Drugs: Marijuana Lives In: Home Constitutional: denies: chills, diaphoresis, fatigue, fever, malaise, sweats, weakness, others EENTM: denies: blurred vision, double vision, ear bleeding, ear discharge, ear drainage, ear pain, ear ringing, eye pain, eye redness, hearing loss, mouth pain, mouth swelling, nasal discharge, nose bleeding, nose congestion, nose pain, photophobia, tearing, throat pain, throat swelling, voice changes, others Respiratory: denies: cough, hemoptysis, orthopnea, SOB at rest, shortness of b reath, SOB with excertion, stridor, wheezing, others Cardiovascular: reports: chest pain; denies: dizzy spells, diaphoresis, Dyspnea on exertion, edema, irregular heart beat, left arm pain, lightheadedness, palpit ations, PND, syncope, others Gastrointestinal: denies: abdomen distended, abdominal pain, blood streaked b owels, constipated, diarrhea, dysphagia, difficulty swallowing, hematemesis, melena, nausea, poor appetite, poor fluid intake, rectal bleeding, rectal pain, vomiting, others Genitourinary: denies: abnormal vagina bleeding, burning, dyspareunia, dysuria, flank pain, frequency, hematuria, incontinence, pain, , vagina discharge, urgency, others Neurological: denies: dizziness, fainting, headache, left sided numbness, left sided weakness, numbness, paresthesia, pre-existing deficit, right sided numbness, right sided weakness, seizure, speech problems, tingling, tremors, weakness, others Musculoskeletal: denies: back pain, gout, joint pain, joint swelling, muscle pain, muscle stiffness, neck pain, others Integumetry: denies: bruises, change in color, change in hair/nails, dryness, laceration, lesions, lumps, rash, wounds, others Allergic/Immunocompromised: denies: Difficulty Healing, Frequent Infections, Hives, Itching, others Physical Exam General Appearance: No Apparent Distress, Normal HEENT: Normal ENT Inspection, Pharynx Normal, TMs Normal Neck: Full Range of Motion, Non-Tender, Normal, Normal Inspection Respiratory: Chest Non-Tender, Lungs Clear, No Accessory Muscle Use, No Respiratory Distress, Normal Breath Sounds Cardiovascular: No Edema, No JVD, No Murmur, No Gallop, Normal Peripheral Pulses, Regular Rate/Rhythm, Other (Chest pain reproducible with palpation of the chest wall) Breast Exam: Deferred Gastrointestinal: No Organomegaly, Non Tender, No Pulsatile Mass, Normal Bowel Sounds, Soft Genitalia: Deferred Pelvic: Deferred Rectal: Deferred Extremities: No calf tenderness, Normal capillary refill, Normal inspection, Normal range of motion, Non-tender, No pedal edema Musculoskeletal : Apperance: Normal Neurologic: Alert, radio journalist II-XII nml as Tested, No Motor Deficits, Normal Affect, Normal Mood, No Sensory Deficits Cerebellar Function: Normal Reflexes: Normal Skin: Dry, Normal Color, Warm Lymphatic: No Adenopathy Was a procedure done? Was a procedure done?: No CP Differential Dx Differential Diagnosis: Angina, ME Differential Diagnosis: HTN Essential Differential Diagnosis: Angina X-Ray, Labs, Meds, VS Vital Signs Date Time Temp Pulse Resp B/P (MAP) Pulse Ox O2 Delivery O2 Flow Rate FiO2 10/07/25 02:21 98.5 93 16 125/88 (100) 95 98.5 10/07/25 02:13 79 10/07/25 02:04 98.5 93 16 125/88 95 98.5 Lab Test 10/07/25 02:17 Range/Units White Blood Count 7.8 4.4-10.8 10^3/uL Red Blood Count 4.32 4.0-5.20 10^6/uL Hemoglobin 12.8 12.2-16.2 g/dL Hematocrit 37.6 36.0-46.0 % Mean Corpuscular Volume 87.0 80.0-100.0 fL Mean Corpuscular Hemoglobin 29.7 28.0-32.0 pg Mean Corpuscular Hemoglobin Concent 34.1 32.0-36.0 g/dL Red Cell Distribution Width 13.5 11.8-14.3 % Platelet Count 362 140-450 10^3/uL Mean Platelet Volume 6.8 L 6.9-10.8 fL Neutrophils (%) (Auto) 32.1 L 37.0-80.0 % Lymphocytes (%) (Auto) 55.4 H 10.0-50.0 % Monocytes (%) (Auto) 9.0 0.0-12.0 % Eosinophils (%) (Auto) 2.6 0.0-7.0 % Basophils (%) (Auto) 0.9 0.0-2.0 % Neutrophils # (Auto) 2.5 1.6-8.6 10 ^3/uL Lymphocytes # (Auto) 4.3 0.4-5.4 10 ^3/uL Monocytes # (Auto) 0.7 0-1.3 10 ^3/uL Eosinophils # (Auto) 0.2 0-0.8 10 ^3/uL Basophils # (Auto) 0.1 0-0.2 10 ^3/uL Nucleated Red Blood Cells 0.0 % Sodium Level Pending Potassium Level Pending Chloride Level Pending Carbon Dioxide Level Pending Anion Gap Pending Blood Urea Nitrogen Pending Creatinine Pending Glomerular Filtration Rate Calc Pending BUN/Creatinine Ratio Pending Serum Glucose Pending Calcium Level Pending Troponin I High Sensitivity Pending X-Ray, Labs, Meds, VS Comment Imaging was reviewed by this provider, there is no obvious pathological or acute disease process. Pending radiology review Labs were reviewed by this provider, no abnormalities Vital signs reviewed by this provider, clinically stable Time of 1ST Reevaluation: 02:29 Reevaluation 1ST: Improved Patient Education/Counseling: Diagnosis, Treatment, Need For Follow Up (Follow up with PCP in the next 2-3 days. Return to the emergency department if symptoms worsen.) Family Education/Counseling: Diagnosis, Treatment SEPSIS Sepsis Screen Date sepsis recognized/suspect: Oct 07, 2025 Time Sepsis recognized/suspect: 208 Recent Procedure: No On Antibiotic Therapy: No Respiratory Rate >20: No Heart Rate >90: No Temp<36 C (96.8 F) or >38.3 C: No SBP <90 or MAP <65 mmHG: No New Acute Mental Status Change: No Is the patient on CPAP, BIPAP,: No Physician Orders Chest Portable (10/07/25 02:04) Troponin-I Hs (10/07/25 02:04) Troponin-I Hs (10/07/25 03:04) Troponin-I Hs (10/07/25 05:04) Electrocardigram (10/07/25 03:04) Electrocardigram (10/07/25 05:04) Basic Metabolic Panel (10/07/25 02:04) Urine (10/07/25 ) Vital Signs Date Time Temp Pulse Resp B/P (MAP) Pulse Ox O2 Delivery O2 Flow Rate FiO2 10/07/25 02:21 98.5 93 16 125/88 (100) 95 98.5 10/07/25 02:13 79 10/07/25 02:04 98.5 93 16 125/88 95 98.5 Laboratory Tests Test 10/07/25 02:17 White Blood Count 7.8 10^3/uL (4.4-10.8) Departure 1 Departure Time of Disposition: 02:29 Impression: Primary Impression: Musculoskeletal chest pain Disposition: 01 HOME / SELF CARE / HOMELESS Condition: Stable Discharged With: Self Critical Care Note Critical Care Time?: No Stability Stability form required: No Heart Score Heart Score: Heart Score Response (Comments) Value History N/A 0 EKG N/A 0 Age N/A 0 Risk Factors N/A 0 Troponin N/A 0 Total 0 ERICA PICKARDP Oct 07, 2025 02:50
[2025-10-07 03:13] LABS: Chloride 107 mmol/L (98-107)
[2025-10-07 03:20] VITALS: PULSE 70
--- NOTE | 2025-10-07 03:22 | ECG ---
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
== END 2025-10-07 05:33 | disposition home or self-care (01) ==
LOC: ER 01:57
DX: F41.9 Anxiety disorder, unspecified (principal); D64.9 Anemia, unspecified
CPT/HCPCS: 36415; 80048; 84484; 85025; 93005